=== PATIENT | male | born 1960 | race Caucasian/White ===

== ENCOUNTER 2020-11-22 14:32 | Observation (INO) | payer OTHER ==
[~2020-11-22] VITALS: Ht 180.3 cm; Wt 77.3 kg
[2020-11-22] VITALS (7 sets, daily range): BP systolic 109–144; BP diastolic 54–78
[2020-11-22] MEDS ORDERED: MORPHINE SULFATE 10 MG/ML VIAL. IV ONE (15:15)
[2020-11-22] MEDS ORDERED: ONDANSETRON PF 4 MG/2 ML VIAL. IVP ONE (15:15)
[2020-11-22 15:20] LABS: BASO % 0 % (0-3); EOS % 0 % (0-3); HEMATOCRIT 47.3 % (39.0-53.0); HEMOGLOBIN 15.9 g/dL (13.0-17.5); LYMPH # 0.8 x10^3/uL (1.0-4.8); LYMPH % 7 % (24-48); MEAN CORPUSCULAR HEMOGLOBIN 30 pg (25-35); MEAN CORPUSCULAR HGB CONC 34 g/dL (31-37); MEAN CORPUSCULAR VOLUME 89 fL (79-100); MONO # 0.4 x10^3/uL (0.0-1.1); MONO % 3 % (0-9); NEUT # 9.9 x10^3/uL (1.8-7.7); NEUT % 89 % (31-73); PLATELET COUNT 248 x10^3/uL (140-400); RED BLOOD COUNT 5.31 x10^6/uL (4.30-5.70); RED CELL DISTRIBUTION WIDTH 13.2 % (11.5-14.5); WHITE BLOOD COUNT 11.1 x10^3/uL (4.0-11.0)
[2020-11-22 15:40] LABS: CALCIUM 8.4 mg/dL (8.5-10.1); CREATININE 1.1 mg/dL (0.7-1.3); GFR 68.3; POTASSIUM 3.4 mmol/L (3.5-5.1)
[2020-11-22 15:43] LABS: % BANDS 2 % (0-9); % LYMPHS 9 % (24-48); % MONOS 2 % (0-10); % SEGS 87 % (35-66)
[2020-11-22 15:44] LABS: PLT ESTIMATE ADEQUATE (ADEQUATE); TOXIC GRANULATION SLIGHT
[2020-11-22 15:46] LABS: ALBUMIN 3.9 g/dL (3.4-5.0); ALBUMIN/GLOBULIN RATIO 1.3 (1.0-1.7); TOTAL BILIRUBIN 1.1 mg/dL (0.2-1.0); TOTAL PROTEIN 6.8 g/dL (6.4-8.2)
[2020-11-22] MEDS ORDERED: HYDROmorphone 2 MG/ML VIAL IVP ONE (16:00)
[2020-11-22] MEDS ORDERED: IOHEXOL 300 MG/ML 100ML VIAL. IV ONE (16:00)
[2020-11-22] MEDS ORDERED: CONTRAST GIVEN. MC PRN (16:00)
--- NOTE | 2020-11-22 16:35 | RAD ---
Exam: CT abdomen/pelvis with intravenous contrast Indication: Left groin swelling, likely inguinal hernia Comparison: None Technique: Helical CT imaging performed of the abdomen and pelvis after the intravenous administratio n of 75 mm Omnipaque 300 contrast. Sagittal and coronal reformats were obtained. One or more of the following individualized dose reduction techniques were utilized for this examinat ion: 1. Automated exposure control 2. Adjustment of the mA and/or kV according to patient size 3. Use of iterative reconstruction technique. Findings: Lower chest: Normal. Liver: Normal. Gallbladder/Biliary Tree: Normal. Pancreas: Mild pancreatic atrophy. Spleen: Normal. Adrenal Glands: Normal. Kidneys/Ureters/Bladder: Kidneys are normal in size and enhance symmetrically. There are simple cyst in the left kidney, largest measuring 1.6 cm. No hydronephrosis. Ureters and bladder are normal. Reproductive Organs: Prostate gland is normal Stomach, small bowel, and colon: Stomach is distended with debris. There is a left inguinal hernia co ntaining loops of small bowel and part of the sigmoid colon. The small bowel within the hernia sac is mildly distended at the upper limit of normal normal in caliber but fluid-filled abnormal in appeara nce with collapse afferent and efferent limbs going into the sac consistent with a closed-loop config uration. There is also free fluid in the sac and mesenteric edema within the hernia sac. The opening of the hernia measures approximately 4 cm. No pneumatosis or pneumoperitoneum. The rest of the colon and small bowel are normal in appearance. Vasculature: Abdominal aorta is normal in caliber. Lymph Nodes: No lymphadenopathy. Peritoneum and retroperitoneum: No free air. Bones: No acute osseous abnormality. There is mild degenerative disc disease at L4-L5 and L5-S1. Impression: Moderate left inguinal hernia containing loops of small bowel and sigmoid colon. The smal l bowel in the hernia sac is abnormal in appearance and mildly distended suspicious for closed loop o bstruction. There is mesenteric edema and fluid in the hernia sac. Recommend surgical consultation. Results discussed by Dr. Kramer with the ER at 4:30 PM on 11/22/2020 Electronically signed by: Bernadette Kramer MD (11/22/2020 4:32 PM) [id number]
--- NOTE | 2020-11-22 17:01 | PHYS DOC ---
Past Medical History Past Medical History: Hypertension Additional Past Medical Histor: Inguinal Hernia Past Surgical History: Tonsillectomy Smoking Status: Never Smoker Alcohol Use: Occasionally General Adult EDM: Chief Complaint: OTHER COMPLAINTS HPI: HPI: Patient is a 60 year old male with a history of hypertension who presents to the ED today complaining of moderate pain to the left inguinal region that began this morning. Patient states he was trying to vomit after eating something that his stomach did not agree with. He states he felt his bowels move into his groin region. He states since then he has had moderate pain to the left groin region. Describes the pain as pressure worse on touching the region. Denies any difficulty voiding. Denies any previous history of hernias Review of Systems: Review of Systems: Constitutional: Denies fever or chills. [] Eyes: Denies change in visual acuity. [] HENT: Denies nasal congestion or sore throat. [] Respiratory: Denies cough or shortness of breath. [] Cardiovascular: Denies chest pain or edema. [] GI: Denies abdominal pain, nausea, vomiting, bloody stools or diarrhea. [] : Reports left groin pain. Denies dysuria. [] Musculoskeletal: Denies back pain or joint pain. [] Integument: Denies rash. [] Neurologic: Denies headache, focal weakness or sensory changes. [] Psychiatric: Denies depression or anxiety. [] Heart Score: C/O Chest Pain: No Risk Factors: Risk Factors: DM, Current or recent (<one month) smoker, HTN, HLP, family history of CAD, obesity. Risk Scores: Score 0 - 3: 2.5% MACE over next 6 weeks - Discharge Home Score 4 - 6: 20.3% MACE over next 6 weeks - Admit for Clinical Observation Score 7 - 10: 72.7% MACE over next 6 weeks - Early Invasive Strategies Current Medications: Current Medications Medications (Trade) Dose Ordered Sig/Eve Start Time Stop Time Status Last Admin Dose Admin Hydromorphone HCl (Dilaudid) 1 mg 1X ONCE 11/22/20 16:00 11/22/20 16:01 DC Info (CONTRAST GIVEN -- Rx MONITORING) 1 each PRN DAILY PRN 11/22/20 16:00 11/24/20 15:59 Iohexol (Omnipaque 300 Mg/ml) 75 ml 1X ONCE 11/22/20 16:00 11/22/20 16:01 DC 11/22/20 16:07 75 ML Morphine Sulfate (Morphine Sulfate) 5 mg 1X ONCE 11/22/20 15:15 11/22/20 15:16 DC 11/22/20 15:31 5 MG Ondansetron HCl (Zofran) 4 mg 1X ONCE 11/22/20 15:15 11/22/20 15:16 DC 11/22/20 15:31 4 MG Allergies: Allergies: Allergies Coded Allergies Type Severity Reaction Last Updated Verified No Known Drug Allergies 11/22/20 No Physical Exam: PE: Constitutional: Well developed, well nourished, no acute distress, non-toxic appearance. [] HENT: Normocephalic, atraumatic, bilateral external ears normal, oropharynx moist, no oral exudates, nose normal. [] Eyes: PERRLA, EOMI, conjunctiva normal, no discharge. [] Neck: Normal range of motion, no tenderness, supple, no stridor. [] Cardiovascular:Heart rate regular rhythm, no murmur [] Lungs & Thorax: Bilateral breath sounds clear to auscultation [] Abdomen: Bowel sounds normal, soft, no tenderness, no masses, no pulsatile masses. [] Male Circumcised male, moderate left groin swelling into the left testicles consistent with a hernia, moderate tenderness to the region. Patient would not allow me to even touch the region. Exam limited due to pain Skin: Warm, dry, no erythema, no rash. [] Back: No tenderness, no CVA tenderness. [] Extremities: No tenderness, no cyanosis, no clubbing, ROM intact, no edema. [] Neurologic: Alert and oriented X 3, normal motor function, normal sensory function, no focal deficits noted. [] Psychologic: Affect normal, judgement normal, mood normal. [] Current Patient Data: Labs: Laboratory Tests Test 11/22/20 15:10 White Blood Count 11.1 x10^3/uL (4.0-11.0) H Red Blood Count 5.31 x10^6/uL (4.30-5.70) Hemoglobin 15.9 g/dL (13.0-17.5) Hematocrit 47.3 % (39.0-53.0) Mean Corpuscular Volume 89 fL (79-100) Mean Corpuscular Hemoglobin 30 pg (25-35) Mean Corpuscular Hemoglobin Concent 34 g/dL (31-37) Red Cell Distribution Width 13.2 % (11.5-14.5) Platelet Count 248 x10^3/uL (140-400) Neutrophils (%) (Auto) 89 % (31-73) H Lymphocytes (%) (Auto) 7 % (24-48) L Monocytes (%) (Auto) 3 % (0-9) Eosinophils (%) (Auto) 0 % (0-3) Basophils (%) (Auto) 0 % (0-3) Neutrophils # (Auto) 9.9 x10^3/uL (1.8-7.7) H Lymphocytes # (Auto) 0.8 x10^3/uL (1.0-4.8) L Monocytes # (Auto) 0.4 x10^3/uL (0.0-1.1) Eosinophils # (Auto) 0.0 x10^3/uL (0.0-0.7) Basophils # (Auto) 0.0 x10^3/uL (0.0-0.2) Segmented Neutrophils % 87 % (35-66) H Band Neutrophils % 2 % (0-9) Lymphocytes % 9 % (24-48) L Monocytes % 2 % (0-10) Toxic Granulation Slight Platelet Estimate Adequate (ADEQUATE) Sodium Level 138 mmol/L (136-145) Potassium Level 3.4 mmol/L (3.5-5.1) L Chloride Level 102 mmol/L (98-107) Carbon Dioxide Level 26 mmol/L (21-32) Anion Gap 10 (6-14) Blood Urea Nitrogen 17 mg/dL (8-26) Creatinine 1.1 mg/dL (0.7-1.3) Estimated GFR (Cockcroft-Gault) 68.3 BUN/Creatinine Ratio 15 (6-20) Glucose Level 187 mg/dL (70-99) H Calcium Level 8.4 mg/dL (8.5-10.1) L Total Bilirubin 1.1 mg/dL (0.2-1.0) H Aspartate Amino Transferase (AST) 17 U/L (15-37) Alanine Aminotransferase (ALT) 23 U/L (16-63) Alkaline Phosphatase 71 U/L (46-116) Total Protein 6.8 g/dL (6.4-8.2) Albumin 3.9 g/dL (3.4-5.0) Albumin/Globulin Ratio 1.3 (1.0-1.7) Laboratory Tests 11/22/20 15:10 Laboratory Tests 11/22/20 15:10 Vital Signs: Vital Signs Date Time Temp Pulse Resp B/P (MAP) Pulse Ox O2 Delivery O2 Flow Rate FiO2 11/22/20 15:31 18 100 Room Air 11/22/20 14:50 97.4 48 155/72 (99) 97.4 EKG: EK interpreted by Dr. Carter sinus rhythm heart rate 46 no STEMI [] Radiology/Procedures: Radiology/Procedures: []PROCEDURE: CT ABD PELV W/ IV CONTRST ONLY Exam: CT abdomen/pelvis with intravenous contrast Indication: Left groin swelling, likely inguinal hernia Comparison: None Technique: Helical CT imaging performed of the abdomen and pelvis after the intravenous administration of 75 mm Omnipaque 300 contrast. Sagittal and coronal reformats were obtained. One or more of the following individualized dose reduction techniques were utilized for this examination: 1. Automated exposure control 2. Adjustment of the mA and/or kV according to patient size 3. Use of iterative reconstruction technique. Findings: Lower chest: Normal. Liver: Normal. Gallbladder/Biliary Tree: Normal. Pancreas: Mild pancreatic atrophy. Spleen: Normal. Adrenal Glands: Normal. Kidneys/Ureters/Bladder: Kidneys are normal in size and enhance symmetrically. There are simple cyst in the left kidney, largest measuring 1.6 cm. No hydronephrosis. Ureters and bladder are normal. Reproductive Organs: Prostate gland is normal Stomach, small bowel, and colon: Stomach is distended with debris. There is a left inguinal hernia containing loops of small bowel and part of the sigmoid colon. The small bowel within the hernia sac is mildly distended at the upper limit of normal normal in caliber but fluid-filled abnormal in appearance with collapse afferent and efferent limbs going into the sac consistent with a closed-loop configuration. There is also free fluid in the sac and mesenteric edema within the hernia sac. The opening of the hernia measures approximately 4 cm. No pneumatosis or pneumoperitoneum. The rest of the colon and small bowel are normal in appearance. Vasculature: Abdominal aorta is normal in caliber. Lymph Nodes: No lymphadenopathy. Peritoneum and retroperitoneum: No free air. Bones: No acute osseous abnormality. There is mild degenerative disc disease at L4-L5 and L5-S1. Impression: Moderate left inguinal hernia containing loops of small bowel and sigmoid colon. The small bowel in the hernia sac is abnormal in appearance and mildly distended suspicious for closed loop obstruction. There is mesenteric edema and fluid in the hernia sac. Recommend surgical consultation. Results discussed by Dr. Kramer with the ER at 4:30 PM on 11/22/2020 Electronically signed by: Bernadette Kramer MD (11/22/2020 4:32 PM) [id number] DICTATED and SIGNED BY: BERNADETTE KRAMER MD DATE: 11/22/20 [id number] 0 Course & Med Decision Making: Course & Med Decision Making Pertinent Labs and Imaging studies reviewed. (See chart for details) This is a 60-year-old male patient presented to the ED today complaining of moderate pain to the left inguinal region after he developed an inguinal hernia vomiting. CT of the abdomen and pelvic was noted for moderate left inguinal hernia containing loops of small bowel and sigmoid colon. The small bowel in the hernia sac is abnormal in appearance and mildly distended suspicious for closed loop obstruction. There is mesenteric edema and fluid in the hernia sac. Recommend surgical consultation. Spoke with Dr. Morrison who will follow up with patient Spoke with Dr. Gudino who accepted patient for admission Dragon Disclaimer: Adri Disclaimer: This electronic medical record was generated, in whole or in part, using a voice recognition dictation system. Departure Departure Impression: Primary Impression: Inguinal hernia Qualified Codes: K40.90 - Unilateral inguinal hernia, without obstruction or gangrene, not specified as recurrent Disposition: 09 ADMITTED INPT THIS HOSP Condition: STABLE Referrals: DEMETRA GUDINO MD (PCP) DONNA PATEL [employer] Nov 22, 2020 17:01
[2020-11-22] MEDS ORDERED: SEVOFLURANE 31 TO 60 MINUTES. IH ONE (17:29)
[2020-11-22] MEDS ORDERED: ROCURONIUM 50 MG/5 ML VIAL. ONE (17:29)
[2020-11-22] MEDS ORDERED: SUCCINYLCHOLINE 200 MG/10 ML VIAL. ONE (17:29)
[2020-11-22] MEDS ORDERED: fentaNYL PF VIAL 100 MCG/2 ML VIAL ONE (17:29)
[2020-11-22] MEDS ORDERED: LIDOCAINE 2% PF 5 ML VIAL. ONE (17:30)
[2020-11-22] MEDS ORDERED: ONDANSETRON PF 4 MG/2 ML VIAL. ONE (17:30)
[2020-11-22] MEDS ORDERED: ONDANSETRON PF 4 MG/2 ML VIAL. IV PRN (17:30)
[2020-11-22] MEDS ORDERED: PROPOFOL 10 MG/ML (20ML) VIAL. IV ONE (17:30)
[2020-11-22] MEDS ORDERED: DEXAMETHASONE SOD PHOS 4 MG/ML VIAL ONE (17:30)
[2020-11-22] MEDS ORDERED: MORPHINE SULFATE 4 MG/ML VIAL. IV PRN (17:30)
[2020-11-22] MEDS ORDERED: KETOROLAC 30 MG/ML VIAL. ONE (17:30)
[2020-11-22] MEDS ORDERED: BUPIVACAINE-EPI 0.25% 30 ML VIAL KIT. ONE (17:48)
[2020-11-22] MEDS ORDERED: HYDROmorphone 2 MG/ML VIAL IVP PRN (18:00)
[2020-11-22] MEDS ORDERED: IV RINGERS,LACTATED 1000ML 1,000 ML IV SCH (18:00)
[2020-11-22] MEDS ORDERED: PROCHLORPERAZINE 10 MG/2 ML VIAL. IVP PRN (18:00)
[2020-11-22] MEDS ORDERED: fentaNYL PF VIAL 100 MCG/2 ML VIAL IVP PRN ×2 (18:00)
[2020-11-22] MEDS ORDERED: MORPHINE SULFATE 2 MG/ML VIAL. IVP PRN (18:00)
--- NOTE | 2020-11-22 18:06 | PDOC2 ---
CONSULT Date of Consult Date of Consult DATE: 11/22/20 TIME: 18:02 Reason for Consult Reason for Consult: Painful left inguinal hernia Referring Physician Referring Physician: Roseanne Identification/Chief Complaint Chief Complaint Painful left groin bulge Source Source: Chart review, Patient History of Present Illness Reason for Visit: 60-year-old male who ate something for breakfast today there was disagreeable try to make himself vomit and so doing with the retching developed a bulge in a known left inguinal hernia that he could not reduce it was quite painful. Patient came to the emergency department for further evaluation CT scan was performed which showed loop of small bowel and some sigmoid colon within the hernia defect showing bowel obstruction. The patient has not vomited since this morning. Past Medical History Cardiovascular: HTN Pulmonary: No pertinent hx GI: No pertinent hx Heme/Onc: No pertinent hx Hepatobiliary: No pertinent hx Psych: No pertinent hx Infectious disease: No pertinent hx ENT: No pertinent hx Renal/: No pertinent hx Endocrine: No pertinent hx Dermatology: No pertinent hx Past Surgical History Past Surgical History: Tonsillectomy Family History Family History: No Significant Social History No ALCOHOL: rare Drugs: None Lives: with Family Current Problem List Problem List Problems Medical Problems: (1) Inguinal hernia Status: Acute Current Medications Current Medications Current Medications Morphine Sulfate (Morphine Sulfate) 5 mg 1X ONCE IV Last administered on 11/22/20at 15:31; Start 11/22/20 at 15:15; Stop 11/22/20 at 15:16; Status DC Ondansetron HCl (Zofran) 4 mg 1X ONCE IVP Last administered on 11/22/20at 15:31; Start 11/22/20 at 15:15; Stop 11/22/20 at 15:16; Status DC Iohexol (Omnipaque 300 Mg/ml) 75 ml 1X ONCE IV Last administered on 11/22/20at 16:07; Start 11/22/20 at 16:00; Stop 11/22/20 at 16:01; Status DC Info (CONTRAST GIVEN -- Rx MONITORING) 1 each PRN DAILY PRN MC SEE COMMENTS; Start 11/22/20 at 16:00; Stop 11/24/20 at 15:59 Hydromorphone HCl (Dilaudid) 1 mg 1X ONCE IVP Last administered on 11/22/20at 17:26; Start 11/22/20 at 16:00; Stop 11/22/20 at 16:01; Status DC Succinylcholine Chloride (Anectine) 200 mg STK-MED ONCE .ROUTE ; Start 11/22/20 at 17:29; Stop 11/22/20 at 17:29; Status DC Rocuronium [place] (Zemuron) 50 mg STK-MED ONCE .ROUTE ; Start 11/22/20 at 17:29; Stop 11/22/20 at 17:29; Status DC Fentanyl Citrate (Fentanyl 2ml Vial) 100 mcg STK-MED ONCE .ROUTE ; Start 11/22/20 at 17:29; Stop 11/22/20 at 17:30; Status DC Sevoflurane (Ultane) 30 ml STK-MED ONCE IH ; Start 11/22/20 at 17:29; Stop 11/22/20 at 17:30; Status DC Propofol (Diprivan) 200 mg STK-MED ONCE IV ; Start 11/22/20 at 17:30; Stop 11/22/20 at 17:30; Status DC Lidocaine HCl (Lidocaine Pf 2% Vial) 5 ml STK-MED ONCE .ROUTE ; Start 11/22/20 at 17:30; Stop 11/22/20 at 17:30; Status DC Ondansetron HCl (Zofran) 4 mg PRN Q8HRS PRN IV NAUSEA/VOMITING; Start 11/22/20 at 17:30; Stop 11/23/20 at 17:29 Morphine Sulfate (Morphine Sulfate) 4 mg PRN Q2HR PRN IV PAIN; Start 11/22/20 at 17:30; Stop 11/23/20 at 17:29 Dexamethasone Sodium Phosphate (Decadron) 4 mg STK-MED ONCE .ROUTE ; Start 11/22/20 at 17:30; Stop 11/22/20 at 17:30; Status DC Ketorolac Tromethamine (Toradol 30mg Vial) 30 mg STK-MED ONCE .ROUTE ; Start 11/22/20 at 17:30; Stop 11/22/20 at 17:30; Status DC Ondansetron HCl (Zofran) 4 mg STK-MED ONCE .ROUTE ; Start 11/22/20 at 17:30; Stop 11/22/20 at 17:30; Status DC Bupivacaine HCl/ Epinephrine Bitart (Sensorcain-Epi 0.25% Kit) 30 ml STK-MED ONCE .ROUTE ; Start 11/22/20 at 17:48; Stop 11/22/20 at 17:48; Status DC Fentanyl Citrate (Fentanyl 2ml Vial) 25 mcg PRN Q5MIN PRN IVP MILD PAIN 1-3; Start 11/22/20 at 18:00; Stop 11/23/20 at 17:59; Status UNV Fentanyl Citrate (Fentanyl 2ml Vial) 50 mcg PRN Q5MIN PRN IVP MODERATE PAIN 4- 6; Start 11/22/20 at 18:00; Stop 11/23/20 at 17:59; Status UNV Morphine Sulfate (Morphine Sulfate) 1 mg PRN Q10MIN PRN IVP SEVERE PAIN 7-10; Start 11/22/20 at 18:00; Stop 11/23/20 at 17:59; Status UNV Ringer's Solution 1,000 ml @ 30 mls/hr Q24H IV ; Start 11/22/20 at 18:00; Stop 11/23/20 at 05:59; Status UNV Hydromorphone HCl (Dilaudid) 0.5 mg PRN Q10MIN PRN IVP SEVERE PAIN 7-10, 2nd CHOICE; Start 11/22/20 at 18:00; Stop 11/23/20 at 17:59; Status UNV Prochlorperazine Edisylate (Compazine) 5 mg PACU PRN PRN IVP NAUSEA, MRX1; Start 11/22/20 at 18:00; Stop 11/23/20 at 17:59; Status UNV Allergies Allergies: Coded Allergies: No Known Drug Allergies (Unverified , 11/22/20) ROS Gastrointestinal: Yes Abdominal Pain Genitourinary: YES Other (Left groin pain) Physical Exam General: Alert, Oriented X3, Cooperative, mild distress HEENT: Atraumatic, EOMI Lungs: Clear to auscultation, Normal air movement Heart: Regular rate, No murmurs Abdomen: Normal bowel sounds, Soft, Other (Left groin bulge tender to palpation nonreducible) Extremities: No edema Skin: No significant lesion Neuro: Normal speech Psych/Mental Status: Mental status NL Vitals VITALS Vital Signs Date Time Temp Pulse Resp B/P (MAP) Pulse Ox O2 Delivery O2 Flow Rate FiO2 11/22/20 17:26 18 100 Room Air 11/22/20 14:50 97.4 48 155/72 (99) 97.4 Labs Labs Laboratory Tests Test 11/22/20 15:10 11/22/20 17:05 White Blood Count 11.1 x10^3/uL (4.0-11.0) Red Blood Count 5.31 x10^6/uL (4.30-5.70) Hemoglobin 15.9 g/dL (13.0-17.5) Hematocrit 47.3 % (39.0-53.0) Mean Corpuscular Volume 89 fL (79-100) Mean Corpuscular Hemoglobin 30 pg (25-35) Mean Corpuscular Hemoglobin Concent 34 g/dL (31-37) Red Cell Distribution Width 13.2 % (11.5-14.5) Platelet Count 248 x10^3/uL (140-400) Neutrophils (%) (Auto) 89 % (31-73) Lymphocytes (%) (Auto) 7 % (24-48) Monocytes (%) (Auto) 3 % (0-9) Eosinophils (%) (Auto) 0 % (0-3) Basophils (%) (Auto) 0 % (0-3) Neutrophils # (Auto) 9.9 x10^3/uL (1.8-7.7) Lymphocytes # (Auto) 0.8 x10^3/uL (1.0-4.8) Monocytes # (Auto) 0.4 x10^3/uL (0.0-1.1) Eosinophils # (Auto) 0.0 x10^3/uL (0.0-0.7) Basophils # (Auto) 0.0 x10^3/uL (0.0-0.2) Segmented Neutrophils % 87 % (35-66) Band Neutrophils % 2 % (0-9) Lymphocytes % 9 % (24-48) Monocytes % 2 % (0-10) Toxic Granulation Slight Platelet Estimate Adequate (ADEQUATE) Sodium Level 138 mmol/L (136-145) Potassium Level 3.4 mmol/L (3.5-5.1) Chloride Level 102 mmol/L (98-107) Carbon Dioxide Level 26 mmol/L (21-32) Anion Gap 10 (6-14) Blood Urea Nitrogen 17 mg/dL (8-26) Creatinine 1.1 mg/dL (0.7-1.3) Estimated GFR (Cockcroft-Gault) 68.3 BUN/Creatinine Ratio 15 (6-20) Glucose Level 187 mg/dL (70-99) Calcium Level 8.4 mg/dL (8.5-10.1) Total Bilirubin 1.1 mg/dL (0.2-1.0) Aspartate Amino Transf (AST/SGOT) 17 U/L (15-37) Alanine Aminotransferase (ALT/SGPT) 23 U/L (16-63) Alkaline Phosphatase 71 U/L (46-116) Total Protein 6.8 g/dL (6.4-8.2) Albumin 3.9 g/dL (3.4-5.0) Albumin/Globulin Ratio 1.3 (1.0-1.7) SARS-CoV-2 Antigen (Rapid) Negative (NEGATIVE) Laboratory Tests Test 11/22/20 15:10 11/22/20 17:05 White Blood Count 11.1 x10^3/uL (4.0-11.0) Red Blood Count 5.31 x10^6/uL (4.30-5.70) Hemoglobin 15.9 g/dL (13.0-17.5) Hematocrit 47.3 % (39.0-53.0) Mean Corpuscular Volume 89 fL (79-100) Mean Corpuscular Hemoglobin 30 pg (25-35) Mean Corpuscular Hemoglobin Concent 34 g/dL (31-37) Red Cell Distribution Width 13.2 % (11.5-14.5) Platelet Count 248 x10^3/uL (140-400) Neutrophils (%) (Auto) 89 % (31-73) Lymphocytes (%) (Auto) 7 % (24-48) Monocytes (%) (Auto) 3 % (0-9) Eosinophils (%) (Auto) 0 % (0-3) Basophils (%) (Auto) 0 % (0-3) Neutrophils # (Auto) 9.9 x10^3/uL (1.8-7.7) Lymphocytes # (Auto) 0.8 x10^3/uL (1.0-4.8) Monocytes # (Auto) 0.4 x10^3/uL (0.0-1.1) Eosinophils # (Auto) 0.0 x10^3/uL (0.0-0.7) Basophils # (Auto) 0.0 x10^3/uL (0.0-0.2) Segmented Neutrophils % 87 % (35-66) Band Neutrophils % 2 % (0-9) Lymphocytes % 9 % (24-48) Monocytes % 2 % (0-10) Toxic Granulation Slight Platelet Estimate Adequate (ADEQUATE) Sodium Level 138 mmol/L (136-145) Potassium Level 3.4 mmol/L (3.5-5.1) Chloride Level 102 mmol/L (98-107) Carbon Dioxide Level 26 mmol/L (21-32) Anion Gap 10 (6-14) Blood Urea Nitrogen 17 mg/dL (8-26) Creatinine 1.1 mg/dL (0.7-1.3) Estimated GFR (Cockcroft-Gault) 68.3 BUN/Creatinine Ratio 15 (6-20) Glucose Level 187 mg/dL (70-99) Calcium Level 8.4 mg/dL (8.5-10.1) Total Bilirubin 1.1 mg/dL (0.2-1.0) Aspartate Amino Transf (AST/SGOT) 17 U/L (15-37) Alanine Aminotransferase (ALT/SGPT) 23 U/L (16-63) Alkaline Phosphatase 71 U/L (46-116) Total Protein 6.8 g/dL (6.4-8.2) Albumin 3.9 g/dL (3.4-5.0) Albumin/Globulin Ratio 1.3 (1.0-1.7) SARS-CoV-2 Antigen (Rapid) Negative (NEGATIVE) Assessment/Plan Assessment/Plan Incarcerated left inguinal hernia with obstruction plan open hernia repair with mesh possible open laparotomy LULU HARPER MD Nov 22, 2020 18:06
[2020-11-22] MEDS ORDERED: ePHEDrine PF IN SALINE 50 MG/10 ML SYRINGE. IV ONE (18:21)
[2020-11-22] MEDS ORDERED: ceFAZolin SODIUM IV Push 1 GM VIAL. IVP ONE ×2 (18:21)
[2020-11-22] MEDS ORDERED: GLYCOPYRROLATE 1 MG/5 ML VIAL. ONE (18:23)
[2020-11-22] MEDS ORDERED: NEOSTIGMINE METHYLSULFATE 5 MG/5 ML SYRINGE. ONE (18:23)
--- NOTE | 2020-11-22 18:57 | EKG ---
[facility] [address] [place] [address] Test Date: 2020-11-22 Test Time: 15:17:33 Pat Name: ERIK MA Department: Room: 440 1 Gender: M [employer]: : [id number] Requested By: DONNA PATEL Order Number: [id number] Reading MD: Measurements Intervals [place] Rate: 46 P: MD: QRS: 43 QRSD: 112 T: 69 QT: 512 QTc: 449 Interpretive Statements IRREGULAR RHYTHM, NO P-WAVE FOUND QRS(T) CONTOUR ABNORMALITY CONSISTENT WITH SEPTAL INFARCT AGE UNDETERMINED T ABNORMALITY IN HIGH LATERAL LEADS ABNORMAL ECG RI6.01 No previous ECG available for comparison
--- NOTE | 2020-11-22 19:11 | PDOC4 ---
Operative Note Operative Note Date: November 22, 2020 at 1908 Preoperative diagnosis: Incarcerated left inguinal hernia Postoperative diagnosis: Same Procedure: Open left inguinal hernia repair with mesh Surgeon: Prince Specimen: None Dictation: Patient is a 60-year-old male was admitted to the hospital through the emergency department with a incarcerated left inguinal hernia. Procedure of left inguinal hernia repair with mesh was explained to the patient detail risk- benefit were also discussed including bleeding infection possibly necessitating a laparotomy. The patient seemed understand gave a verbal and written consent to have the procedure performed. Patient was taken to the operating room placed in the supine position general anesthesia was initiated once patient was sleeping intubated his abdomen and groins were prepped and draped usual sterile fashion using ChloraPrep. The hernia was able to be reduced while the patient was on muscle relaxant. A area over the inguinal canal was injected with quarter percent Marcaine with epinephrine incision was made with a 10 blade scalpel is carried down through the subcutaneous tissue using electrocautery to provide hemostasis. This is taken down to the external fascia which was part ially open with 15 blade scalpel and further opened with Metzenbaum scissors exposing the hernia sac and cord structures which were encircled with a Leon drain the hernia sac was dissected off of the cord structures using sharp and blunt dissection once this was completely freed up from the cord structures it was reduced via the indirect hernia and a large phasix mesh plug was used in the hernia defect mesh overlay was then placed on the floor the inguinal canal this was sewn in place with a running 3-0 Prolene suture. Cord structures were then returned to the floor the inguinal canal the external fascia was then closed with a running 0 Vicryl suture the deep subcutaneous tissue was closed with a running 3-0 Vicryl and the skin was approximated for subcuticular Monocryl Mastisol Steri-Strips and island dressing were applied. Patient was awakened and extubated in the operating room taken to recovery in stable condition all sponge instrument needle counts listed as correct estimated blood loss 10 mL LULU HARPER MD Nov 22, 2020 19:11
[2020-11-22] MEDS ORDERED: oxyCODONE/APAP 5/325 1 TAB TABLET PO PRN ×2 (19:15)
[2020-11-22] MEDS: KETOROLAC 15 MG/ML VIAL. IVP SCH (19:15)
--- NOTE | 2020-11-22 20:40 | NUR ---
RN received report from RN around 2019. Pt. arrived on unit at at 2030 by bed from PACU. Pt. does not have any reports of pain at this time. Call light is within reach with bed in lowest position. Will continue to monitor.
[2020-11-22] MEDS ORDERED: METO-247 PO (21:24)
[2020-11-23] VITALS: BP 112/65
[2020-11-23 03:00] VITALS: BP 115/63
[2020-11-23] MEDS: KETOROLAC 15 MG/ML VIAL. IVP SCH ×2 (05:35)
[2020-11-23 07:00] VITALS: BP 127/68
[2020-11-23 07:17] LABS: BASO % 0 % (0-3); EOS % 0 % (0-3); HEMATOCRIT 42.8 % (39.0-53.0); HEMOGLOBIN 14.4 g/dL (13.0-17.5); LYMPH # 0.6 x10^3/uL (1.0-4.8); LYMPH % 5 % (24-48); MEAN CORPUSCULAR HEMOGLOBIN 30 pg (25-35); MEAN CORPUSCULAR HGB CONC 34 g/dL (31-37); MEAN CORPUSCULAR VOLUME 89 fL (79-100); MONO # 0.7 x10^3/uL (0.0-1.1); MONO % 7 % (0-9); NEUT % 88 % (31-73); PLATELET COUNT 183 x10^3/uL (140-400); RED BLOOD COUNT 4.79 x10^6/uL (4.30-5.70); RED CELL DISTRIBUTION WIDTH 13.5 % (11.5-14.5); WHITE BLOOD COUNT 10.2 x10^3/uL (4.0-11.0)
[2020-11-23 07:42] LABS: ALBUMIN/GLOBULIN RATIO 1.2 (1.0-1.7); CALCIUM 7.9 mg/dL (8.5-10.1); CREATININE 1.1 mg/dL (0.7-1.3); GFR 68.3; POTASSIUM 4.1 mmol/L (3.5-5.1); TOTAL BILIRUBIN 0.8 mg/dL (0.2-1.0); TOTAL PROTEIN 5.5 g/dL (6.4-8.2)
--- NOTE | 2020-11-23 09:09 | PDOC ---
ALVARADO FABIAN COURTESY CLERK 11/23/20 0909: SURGICAL PROGRESS NOTE DATE: 11/23/20 TIME: 09:07 Subjective tolerating diet pain managed + flatus Vital Signs Vital Signs Date Time Temp Pulse Resp B/P (MAP) Pulse Ox O2 Delivery O2 Flow Rate FiO2 11/23/20 08:00 Room Air 11/23/20 07:00 98.1 73 17 127/68 (87) 94 98.1 11/22/20 19:52 10 I&O Intake and Output 11/23/20 07:00 Intake Total 750 ml Output Total 10 ml Balance 740 ml Intake Oral 50 ml IV Total 700 ml Output Urine Total 0 ml Estimated Blood Loss 10 ml # Voids 1 General: Alert, Oriented X3, Cooperative Abdomen: Soft, Other (left groin dressing dry) Labs Laboratory Tests Test 11/22/20 15:10 11/22/20 17:05 11/23/20 07:00 White Blood Count 11.1 x10^3/uL (4.0-11.0) 10.2 x10^3/uL (4.0-11.0) Red Blood Count 5.31 x10^6/uL (4.30-5.70) 4.79 x10^6/uL (4.30-5.70) Hemoglobin 15.9 g/dL (13.0-17.5) 14.4 g/dL (13.0-17.5) Hematocrit 47.3 % (39.0-53.0) 42.8 % (39.0-53.0) Mean Corpuscular Volume 89 fL (79-100) 89 fL (79-100) Mean Corpuscular Hemoglobin 30 pg (25-35) 30 pg (25-35) Mean Corpuscular Hemoglobin Concent 34 g/dL (31-37) 34 g/dL (31-37) Red Cell Distribution Width 13.2 % (11.5-14.5) 13.5 % (11.5-14.5) Platelet Count 248 x10^3/uL (140-400) 183 x10^3/uL (140-400) Neutrophils (%) (Auto) 89 % (31-73) 88 % (31-73) Lymphocytes (%) (Auto) 7 % (24-48) 5 % (24-48) Monocytes (%) (Auto) 3 % (0-9) 7 % (0-9) Eosinophils (%) (Auto) 0 % (0-3) 0 % (0-3) Basophils (%) (Auto) 0 % (0-3) 0 % (0-3) Neutrophils # (Auto) 9.9 x10^3/uL (1.8-7.7) 9.0 x10^3/uL (1.8-7.7) Lymphocytes # (Auto) 0.8 x10^3/uL (1.0-4.8) 0.6 x10^3/uL (1.0-4.8) Monocytes # (Auto) 0.4 x10^3/uL (0.0-1.1) 0.7 x10^3/uL (0.0-1.1) Eosinophils # (Auto) 0.0 x10^3/uL (0.0-0.7) 0.0 x10^3/uL (0.0-0.7) Basophils # (Auto) 0.0 x10^3/uL (0.0-0.2) 0.0 x10^3/uL (0.0-0.2) Segmented Neutrophils % 87 % (35-66) Band Neutrophils % 2 % (0-9) Lymphocytes % 9 % (24-48) Monocytes % 2 % (0-10) Toxic Granulation Slight Platelet Estimate Adequate (ADEQUATE) Sodium Level 138 mmol/L (136-145) 137 mmol/L (136-145) Potassium Level 3.4 mmol/L (3.5-5.1) 4.1 mmol/L (3.5-5.1) Chloride Level 102 mmol/L (98-107) 103 mmol/L (98-107) Carbon Dioxide Level 26 mmol/L (21-32) 29 mmol/L (21-32) Anion Gap 10 (6-14) 5 (6-14) Blood Urea Nitrogen 17 mg/dL (8-26) 21 mg/dL (8-26) Creatinine 1.1 mg/dL (0.7-1.3) 1.1 mg/dL (0.7-1.3) Estimated GFR (Cockcroft-Gault) 68.3 68.3 BUN/Creatinine Ratio 15 (6-20) 19 (6-20) Glucose Level 187 mg/dL (70-99) 132 mg/dL (70-99) Calcium Level 8.4 mg/dL (8.5-10.1) 7.9 mg/dL (8.5-10.1) Total Bilirubin 1.1 mg/dL (0.2-1.0) 0.8 mg/dL (0.2-1.0) Aspartate Amino Transf (AST/SGOT) 17 U/L (15-37) 10 U/L (15-37) Alanine Aminotransferase (ALT/SGPT) 23 U/L (16-63) 17 U/L (16-63) Alkaline Phosphatase 71 U/L (46-116) 56 U/L (46-116) Total Protein 6.8 g/dL (6.4-8.2) 5.5 g/dL (6.4-8.2) Albumin 3.9 g/dL (3.4-5.0) 3.0 g/dL (3.4-5.0) Albumin/Globulin Ratio 1.3 (1.0-1.7) 1.2 (1.0-1.7) SARS-CoV-2 RNA (KATERINA) Negative (Negative) SARS-CoV-2 Antigen (Rapid) Negative (NEGATIVE) Laboratory Tests Test 11/22/20 15:10 11/22/20 17:05 11/23/20 07:00 White Blood Count 11.1 x10^3/uL (4.0-11.0) 10.2 x10^3/uL (4.0-11.0) Red Blood Count 5.31 x10^6/uL (4.30-5.70) 4.79 x10^6/uL (4.30-5.70) Hemoglobin 15.9 g/dL (13.0-17.5) 14.4 g/dL (13.0-17.5) Hematocrit 47.3 % (39.0-53.0) 42.8 % (39.0-53.0) Mean Corpuscular Volume 89 fL (79-100) 89 fL (79-100) Mean Corpuscular Hemoglobin 30 pg (25-35) 30 pg (25-35) Mean Corpuscular Hemoglobin Concent 34 g/dL (31-37) 34 g/dL (31-37) Red Cell Distribution Width 13.2 % (11.5-14.5) 13.5 % (11.5-14.5) Platelet Count 248 x10^3/uL (140-400) 183 x10^3/uL (140-400) Neutrophils (%) (Auto) 89 % (31-73) 88 % (31-73) Lymphocytes (%) (Auto) 7 % (24-48) 5 % (24-48) Monocytes (%) (Auto) 3 % (0-9) 7 % (0-9) Eosinophils (%) (Auto) 0 % (0-3) 0 % (0-3) Basophils (%) (Auto) 0 % (0-3) 0 % (0-3) Neutrophils # (Auto) 9.9 x10^3/uL (1.8-7.7) 9.0 x10^3/uL (1.8-7.7) Lymphocytes # (Auto) 0.8 x10^3/uL (1.0-4.8) 0.6 x10^3/uL (1.0-4.8) Monocytes # (Auto) 0.4 x10^3/uL (0.0-1.1) 0.7 x10^3/uL (0.0-1.1) Eosinophils # (Auto) 0.0 x10^3/uL (0.0-0.7) 0.0 x10^3/uL (0.0-0.7) Basophils # (Auto) 0.0 x10^3/uL (0.0-0.2) 0.0 x10^3/uL (0.0-0.2) Segmented Neutrophils % 87 % (35-66) Band Neutrophils % 2 % (0-9) Lymphocytes % 9 % (24-48) Monocytes % 2 % (0-10) Toxic Granulation Slight Platelet Estimate Adequate (ADEQUATE) Sodium Level 138 mmol/L (136-145) 137 mmol/L (136-145) Potassium Level 3.4 mmol/L (3.5-5.1) 4.1 mmol/L (3.5-5.1) Chloride Level 102 mmol/L (98-107) 103 mmol/L (98-107) Carbon Dioxide Level 26 mmol/L (21-32) 29 mmol/L (21-32) Anion Gap 10 (6-14) 5 (6-14) Blood Urea Nitrogen 17 mg/dL (8-26) 21 mg/dL (8-26) Creatinine 1.1 mg/dL (0.7-1.3) 1.1 mg/dL (0.7-1.3) Estimated GFR (Cockcroft-Gault) 68.3 68.3 BUN/Creatinine Ratio 15 (6-20) 19 (6-20) Glucose Level 187 mg/dL (70-99) 132 mg/dL (70-99) Calcium Level 8.4 mg/dL (8.5-10.1) 7.9 mg/dL (8.5-10.1) Total Bilirubin 1.1 mg/dL (0.2-1.0) 0.8 mg/dL (0.2-1.0) Aspartate Amino Transf (AST/SGOT) 17 U/L (15-37) 10 U/L (15-37) Alanine Aminotransferase (ALT/SGPT) 23 U/L (16-63) 17 U/L (16-63) Alkaline Phosphatase 71 U/L (46-116) 56 U/L (46-116) Total Protein 6.8 g/dL (6.4-8.2) 5.5 g/dL (6.4-8.2) Albumin 3.9 g/dL (3.4-5.0) 3.0 g/dL (3.4-5.0) Albumin/Globulin Ratio 1.3 (1.0-1.7) 1.2 (1.0-1.7) SARS-CoV-2 RNA (KATERINA) Negative (Negative) SARS-CoV-2 Antigen (Rapid) Negative (NEGATIVE) Problem List Problems Medical Problems: (1) Inguinal hernia Status: Acute Assessment/Plan s/p [facility] ok to ct home Justicifation of Admission Dx: Justifications for Admission: Justification of Admission Dx: Yes Comments: LULU MORENO MD 11/23/20 0950: SURGICAL PROGRESS NOTE Assessment/Plan Agree with Nic assessment and plan ALVARADO FABIAN COURTESY CLERK Nov 23, 2020 09:09 LULU HARPER MD Nov 23, 2020 09:50
[2020-11-23] MEDS ORDERED: DOCU-109 PO (09:11)
[2020-11-23] MEDS ORDERED: OXYC1TAB15 PO (09:11)
[2020-11-23 09:25] VITALS: BP 127/68
[2020-11-23] MEDS ORDERED: METOPROLOL TART IMMED RELEASE 50 MG TABLET. PO SCH (09:30)
[2020-11-23] MEDS ORDERED: METO50TA6 PO (10:05)
[2020-11-23] MEDS ORDERED: HYDR12.58 PO (10:05)
--- NOTE | 2020-11-23 10:07 | DISCH ---
DISCHARGE INSTRUCTIONS Condition on Discharge Condition on Discharge: Stable Activity After Discharge Activity Instructions for Disc: Activity as tolerated Diet after Discharge Diet after Discharge: Cardiac Wound Incision Care Wound Care Equipment: Dressings Contacting the [facility] after DC Call your doctor for: Concerns you may have Follow-Up Follow up with: Dr. Demetra Gudino in 3 to 5 days Follow Up With: DEMETRA Hightower MD Nov 23, 2020 10:07
--- NOTE | 2020-11-23 10:08 | PDOC ---
Provider Note Date of Service: DATE: 11/23/20 TIME: 10:08 Provider Note Combined history and physical and discharge summary dictated #[id number]. Justifications for Admission Other Justification DEMETRA PAN MD Nov 23, 2020 10:08
--- NOTE | 2020-11-23 10:39 | NUR ---
SW following. Discussed with RN, pt from home, room air, full liquid diet. Discharge order for home with self care. RN advised no SW needs. Pt discharging this morning so he can get to his second COVID vaccine appointment. No further SW needs.
--- NOTE | 2020-11-23 10:58 | HP ---
ADMIT DATE: 11/23/2020 COMBINED HISTORY AND PHYSICAL AND DISCHARGE SUMMARY HISTORY OF PRESENT ILLNESS: This is a 60-year-old male who has a history of left inguinal hernia, started having increasing swelling in the left groin, getting worse yesterday. He also started having lot of pain in the left lower abdomen. He did not have any nausea, vomiting or diarrhea. He still had bowel movement. The symptoms started yesterday morning and the patient came to the Emergency Room. In the Emergency Room, CT scan of abdomen and pelvis showed moderate left inguinal hernia containing loops of small bowel and sigmoid colon, small bowel in the hernia sac is abnormal in appearance and mildly distended suspicious for closed loop obstruction. There is mesenteric edema and fluid in the hernia sac. Because of the strangulated left inguinal hernia, the patient was admitted for further evaluation and management. Consultation was obtained with the surgeon, Dr. Morrison for further evaluation. REVIEW OF SYSTEMS: The patient had surgery yesterday. This morning, his left groin pain is much better. He denies any nausea, vomiting, abdominal pain, chest pains, fever or chills. Other systems reviewed and are negative. PAST MEDICAL HISTORY: The patient has history of hypertension and hyperlipidemia. PAST SURGICAL HISTORY: Left inguinal hernia as noted earlier, had left inguinal hernia repair yesterday. FAMILY HISTORY: Father has hypertension. Mother, rheumatoid arthritis. SOCIAL HISTORY: No history of smoking, alcoholism or drug abuse. MEDICATIONS: The patient is on metoprolol tartrate 50 mg twice daily and hydrochlorothiazide 12.5 mg daily. ALLERGIES: None known any. PHYSICAL EXAMINATION: VITAL SIGNS: Temperature 97.3, pulse 65 per minute, respirations 18 per minute, blood pressure 125/71 mmHg. GENERAL: The patient is alert, oriented x 3, not in acute distress. EYES: Pupils reacting to light. Conjunctivae pink. Sclerae white. HENT: Unremarkable. NECK: Supple. JVP normal. No thyromegaly. Trachea midline. LUNGS: Clear. CARDIOVASCULAR: S1, S2 irregular. ABDOMEN: Soft, nontender, bowel sounds present. The patient has a dressing in the left groin in the left lower abdomen. EXTREMITIES: No edema, no cyanosis, no calf tenderness. CENTRAL NERVOUS SYSTEM: Alert and oriented, moves extremities. LABORATORY FINDINGS: WBC count 11.1 yesterday, 10.2 today; hemoglobin 15.9 yesterday, 14.4 today. Sodium 138, potassium 3.4, BUN 17, creatinine 1.1 yesterday. Today, sodium is 137, potassium 4.1, BUN 21, creatinine 1.1, glucose 187 and 132, calcium 8.4 and 7.9. Total protein 6.8 yesterday, 5.5 today. Albumin 3.9 yesterday, 3.[address] scan of abdomen and pelvis as noted above. FINAL DIAGNOSES: 1. Strangulated left inguinal hernia. The patient was seen by Dr. Morrison who treated him on 11/22/2020. The patient underwent open left inguinal hernia repair with mesh. 2. Hypertension. PLAN: The patient is doing well postoperatively. Okay to discharge the patient today. Follow up in the office in 3-5 days. We will monitor for hyperglycemia as outpatient. Continue metoprolol 50 mg twice daily and hydrochlorothiazide 12.5 mg daily. Pain medications given by the surgeon. DISPOSITION: Home. CONDITION AT THE TIME OF DISCHARGE: Good. DEMETRA PAN MD DR: AQUILINO/jessica JOB#: [id number] / [id number]
--- NOTE | 2020-11-23 11:03 | NUR ---
Discharge Note: PT DISCHARGED HOME WITH SELF CARE. PT LEFT FACILITY VIA PRIVATE VEHICLE WITH NIECE AT 1102. PT STABLE AND ALERT UPON DISCHARGE. PT PIV REMOVED FROM R AC WITHOUT COMPLICATIONS, BANDAGE APPLIED. PT EDUCATED ABOUT DISCHARGE INSTRUCTIONS, DISCHARGE MEDICATIONS, INCISION SITE CARE, AND FOLLOW-UP INSTRUCTIONS, NO CONCERNS VOICED AT THIS TIME. PT LEFT WITH ALL PERSONAL BELONGINGS. ERIK MA Discharge instructions and discharge home medications reviewed with Patient and a copy given. All questions have been answered and understanding verbalized.
== END 2020-11-23 11:05 | disposition home or self-care (01) ==
LOC: ER 14:32 → INTOOBSV 17:20 → 4 NORTH 17:20
PROVIDERS: ADMIT Internal Medicine; ATTEND Internal Medicine
DX: K40.90 Unilateral inguinal hernia, without obstruction or gangrene, not specified as recurrent (principal); Z20.822 Contact with and (suspected) exposure to COVID-19; I10 Essential (primary) hypertension; E78.5 Hyperlipidemia, unspecified; Z90.49 Acquired absence of other specified parts of digestive tract
CPT/HCPCS: 36415; 49507; 74177; 80053; 85007; 85025; 87426; 93005; 96374; 96375; 99285; A4364; A4930; C1781; G0378; J0330; J0690; J1100; J1170; J1885; J2270; J2405; J2704; J2710; J3490; J7120; Q9967; U0003; A4222; A4452; G0379; J3010